=== PATIENT | female | born 1935 | race Hispanic/Latino ===

== ENCOUNTER 2017-04-22 10:18 | Inpatient (IN) | payer MEDICARE, OTHER ==
[~2017-04-22] VITALS: Ht 160 cm; Wt 79.9 kg
[2017-04-22] MEDS ORDERED: ONDANSETRON HCL 4 MG/2 ML VIAL ONE (10:54)
[2017-04-22] MEDS ORDERED: MORPHINE SULFATE 2 MG/ML 1ML SYG ONE (10:55)
[2017-04-22 10:58] LABS: BASOPHILS % (AUTO) 0.4 % (0.0-5.0); EOSINOPHILS % (AUTO) 0.3 % (0.0-8.0); LYMPHOCYTES % (AUTO) 10.8 % (21.0-51.0); MEAN CORPUSCULAR HEMOGLOBIN 28.6 pg (27.0-33.0); MEAN CORPUSCULAR HGB CONC 33.2 g/dL (32.0-36.0); MEAN CORPUSCULAR VOLUME 86.3 fL (79-99); MONOCYTES % (AUTO) 7.6 % (3.0-13.0); NEUTROPHILS % (AUTO) 80.9 % (40.0-77.0); PLATELET COUNT (AUTO) 324 K/uL (130-400); RED BLOOD CELL COUNT(AUTO) 4.29 MIL/uL (4.00-5.50); RED CELL DISTRIBUTION WIDTH 13.8 % (11.0-15.5); WHITE BLOOD COUNT (AUTO) 10.8 K/uL (4.8-10.8)
[2017-04-22 11:09] LABS: APPEARANCE,URINE Cloudy (CLEAR); BILIRUBIN,URINE Negative (NEGATIVE); COLOR,URINE Dark Yellow (YELLOW); GLUCOSE, URINE (UA) Negative (NEGATIVE); KETONES,URINE Negative (NEGATIVE); LEUKOCYTE ESTERASE ,URINE Small (NEGATIVE); NITRATE,URINE Negative (NEGATIVE); OCCULT BLOOD,URINE Negative (NEGATIVE); PROTEIN,URINE POS 1+ (NEGATIVE)
[2017-04-22 11:10] LABS: POTASSIUM 3.9 mmol/L (3.5-5.1)
[2017-04-22 11:13] LABS: ALBUMIN 3.8 g/dL (3.5-5.0); BILIRUBIN,TOTAL 1.1 mg/dL (0.2-1.0); TOTAL PROTEIN, SERUM 7.4 g/dL (6.0-8.3)
[2017-04-22 11:20] LABS: BACTERIA,URINE Moderate /HPF (None Seen)
[2017-04-22 11:21] LABS: RBC,URINE 0-1 /HPF (0-1)
[2017-04-22] MEDS ORDERED: SODIUM CHLORIDE 0.9% 1000ML 1,000 ML IV ONE (12:10)
[2017-04-22] MEDS ORDERED: LORAZEPAM 2 MG/ML 1 ML VIAL ONE (12:27)
[2017-04-22] MEDS ORDERED: LIDOCAINE HCL 2% VISCOUS 15 ML UDCUP ONE (12:29)
[2017-04-22] MEDS ORDERED: MORPHINE SULFATE 2 MG/ML 1ML SYG IV PRN (13:45)
[2017-04-22] MEDS ORDERED: GUAIFENESIN-DM 200/20 MG 10 ML PO PRN (13:45)
[2017-04-22] MEDS ORDERED: ACETAMINOPHEN 325 MG TAB PO PRN ×2 (13:45)
[2017-04-22] MEDS ORDERED: ONDANSETRON HCL 4 MG/2 ML VIAL IV PRN (13:45)
[2017-04-22] MEDS ORDERED: ZOSYN 3.375GM+NS 50ML 50 ML IV ONE (14:01)
[2017-04-22 15:30] VITALS: BP 149/76
[2017-04-22] MEDS ORDERED: ROSU10TA35 PO (15:41)
[2017-04-22] MEDS ORDERED: FLUO-126 PO (15:41)
[2017-04-22] MEDS ORDERED: VITA100051 PO (15:41)
[2017-04-22] MEDS ORDERED: AEC81 PO (15:41)
[2017-04-22] MEDS ORDERED: CHOL200074 PO (15:41)
[2017-04-22] MEDS ORDERED: LOSA50TA37 PO (15:41)
[2017-04-22] MEDS ORDERED: CYCL30DR OU (15:41)
[2017-04-22] MEDS ORDERED: CYAN50008 PO (15:41)
[2017-04-22] MEDS ORDERED: FISH1CAP63 PO (15:41)
[2017-04-22] MEDS ORDERED: MAGN400C PO (15:41)
[2017-04-22] MEDS ORDERED: CARB15DR3 OU (15:41)
[2017-04-22] MEDS ORDERED: DENO60DI SQ (15:41)
[2017-04-22] MEDS ORDERED: LEVO50TA11 PO (15:41)
[2017-04-22] MEDS ORDERED: CALC-1062 PO (15:41)
[2017-04-22] MEDS: SODIUM CHLORIDE 0.9% 1000ML 1,000 ML IV SCH ×2 (17:17→23:31)
[2017-04-22 20:58] VITALS: BP 150/69
[2017-04-22] MEDS ORDERED: POTASSIUM CHLORIDE 10% ELIXIR 20 MEQ/15 ML UDCUP PO PRN (21:30)
[2017-04-22] MEDS ORDERED: LIDOCAINE HCL-MPF 1% 2ML VIAL IVP PRN (21:30)
[2017-04-22] MEDS: ZOSYN 3.375GM+NS 50ML 50 ML IV SCH (22:59)
[2017-04-23 00:16] VITALS: BP 139/60
[2017-04-23] MEDS: SODIUM CHLORIDE 0.9% 1000ML 1,000 ML IV SCH ×2 (04:07→14:19)
[2017-04-23 04:48] VITALS: BP 136/71
[2017-04-23] MEDS: ZOSYN 3.375GM+NS 50ML 50 ML IV SCH ×3 (05:08→21:39)
[2017-04-23 06:55] LABS: HEMATOCRIT 29.7 % (36-48); MEAN CORPUSCULAR HEMOGLOBIN 29.4 pg (27.0-33.0); MEAN CORPUSCULAR HGB CONC 33.5 g/dL (32.0-36.0); MEAN CORPUSCULAR VOLUME 87.8 fL (79-99); PLATELET COUNT (AUTO) 252 K/uL (130-400); RED BLOOD CELL COUNT(AUTO) 3.38 MIL/uL (4.00-5.50); RED CELL DISTRIBUTION WIDTH 14.4 % (11.0-15.5); WHITE BLOOD COUNT (AUTO) 6.5 K/uL (4.8-10.8)
[2017-04-23 07:00] VITALS: BP 148/63
[2017-04-23 07:19] LABS: CREATININE 0.8 mg/dL (0.5-1.5); POTASSIUM 3.4 mmol/L (3.5-5.1)
[2017-04-23] MEDS ORDERED: PANTOPRAZOLE 40 MG/VIAL IVP SCH (09:00)
[2017-04-23] MEDS ORDERED: FAMOTIDINE/PF 20 MG/2 ML VIAL IV ONE (10:17)
[2017-04-23] MEDS: POTASSIUM CHLORIDE 20MEQ/100ML 100 ML IV PRN (10:32)
[2017-04-23] MEDS ORDERED: ARTIFICAL TEARS SOL 15 ML OU PRN (10:45)
[2017-04-23 11:00] VITALS: BP 159/62
[2017-04-23 15:39] VITALS: BP 160/69
[2017-04-23 20:35] VITALS: BP 154/71
[2017-04-23] MEDS ORDERED: CYCLOSPORINE OU SCH (21:00)
[2017-04-23] MEDS: ***HM***(Cyclosporine (Restasis) 1 DROP) OU SCH (21:00)
[2017-04-23] MEDS: VITAMIN E 400 UNIT CAPSULE PO SCH (21:39)
[2017-04-23] MEDS: ATORVASTATIN CALCIUM 20 MG TABLET PO SCH (21:39)
[2017-04-23] MEDS: FAMOTIDINE/PF 20 MG/2 ML VIAL IV SCH (21:39)
[2017-04-23] MEDS: FISH OIL 1000 MG/CAP PO SCH (21:39)
[2017-04-24] VITALS (7 sets, daily range): BP systolic 140–162; BP diastolic 64–73
[2017-04-24] MEDS: SODIUM CHLORIDE 0.9% 1000ML 1,000 ML IV SCH ×2 (05:05→15:48)
[2017-04-24] MEDS: ZOSYN 3.375GM+NS 50ML 50 ML IV SCH ×3 (05:06→20:41)
[2017-04-24 06:12] LABS: HEMATOCRIT 28.5 % (36-48); MEAN CORPUSCULAR HEMOGLOBIN 28.8 pg (27.0-33.0); MEAN CORPUSCULAR HGB CONC 33.1 g/dL (32.0-36.0); MEAN CORPUSCULAR VOLUME 87.1 fL (79-99); PLATELET COUNT (AUTO) 230 K/uL (130-400); RED BLOOD CELL COUNT(AUTO) 3.27 MIL/uL (4.00-5.50); RED CELL DISTRIBUTION WIDTH 14.1 % (11.0-15.5); WHITE BLOOD COUNT (AUTO) 6.1 K/uL (4.8-10.8)
[2017-04-24 06:20] LABS: CREATININE 0.7 mg/dL (0.5-1.5)
[2017-04-24] MEDS: LEVOTHYROXINE 50 MCG TABLET PO SCH (07:05)
[2017-04-24] MEDS: POTASSIUM CHLORIDE 20MEQ/100ML 100 ML IV PRN (07:06)
[2017-04-24] MEDS: POTASSIUM CHLORIDE 20 MEQ ERTAB PO PRN ×4 (07:06→20:49)
[2017-04-24] MEDS: FISH OIL 1000 MG/CAP PO SCH ×2 (08:55→20:41)
[2017-04-24] MEDS: FLUOXETINE HCL 20 MG CAPSULE PO SCH (08:55)
[2017-04-24] MEDS: CALCIUM 600 + VITAMIN D 400 TABLET PO SCH (08:55)
[2017-04-24] MEDS: MAGNESIUM OXIDE 400 MG TABLET PO SCH (08:55)
[2017-04-24] MEDS: FAMOTIDINE/PF 20 MG/2 ML VIAL IV SCH ×2 (08:55→20:36)
[2017-04-24] MEDS: LOSARTAN 50 MG TABLET PO SCH (08:55)
[2017-04-24] MEDS: VITAMIN E 400 UNIT CAPSULE PO SCH ×2 (08:59→20:46)
[2017-04-24] MEDS: CYANOCOBALAMIN 5000 MCG PO SCH (09:00)
[2017-04-24] MEDS: CHOLECALCIFEROL 2000 UNIT PO SCH (09:00)
[2017-04-24] MEDS: ***HM***(Cyclosporine (Restasis) 1 DROP) OU SCH ×2 (09:00→20:44)
[2017-04-24] MEDS: ATORVASTATIN CALCIUM 20 MG TABLET PO SCH (20:41)
[2017-04-25] MEDS: SODIUM CHLORIDE 0.9% 1000ML 1,000 ML IV SCH ×3 (01:35→21:31)
[2017-04-25 03:52] VITALS: BP 168/80
[2017-04-25] MEDS: ZOSYN 3.375GM+NS 50ML 50 ML IV SCH ×3 (04:33→20:40)
[2017-04-25] MEDS: LEVOTHYROXINE 50 MCG TABLET PO SCH (06:26)
[2017-04-25 06:29] LABS: CREATININE 0.7 mg/dL (0.5-1.5); POTASSIUM 3.9 mmol/L (3.5-5.1)
[2017-04-25 08:00] VITALS: BP 152/61
[2017-04-25] MEDS: CYANOCOBALAMIN 5000 MCG PO SCH (09:00)
[2017-04-25] MEDS: ***HM***(Cyclosporine (Restasis) 1 DROP) OU SCH ×2 (09:00→20:46)
[2017-04-25] MEDS: VITAMIN E 400 UNIT CAPSULE PO SCH ×2 (09:00→20:40)
[2017-04-25] MEDS: CHOLECALCIFEROL 2000 UNIT PO SCH (09:00)
[2017-04-25 09:32] LABS: HEMATOCRIT 32.2 % (36-48)
[2017-04-25] MEDS: CALCIUM 600 + VITAMIN D 400 TABLET PO SCH (10:07)
[2017-04-25] MEDS: FISH OIL 1000 MG/CAP PO SCH ×2 (10:07→20:41)
[2017-04-25] MEDS: FLUOXETINE HCL 20 MG CAPSULE PO SCH (10:07)
[2017-04-25] MEDS: LOSARTAN 50 MG TABLET PO SCH (10:07)
[2017-04-25] MEDS: MAGNESIUM OXIDE 400 MG TABLET PO SCH (10:08)
[2017-04-25] MEDS ORDERED: DENOSUMAB 60 MG SQ SCH (10:45)
[2017-04-25 11:00] VITALS: BP 168/62
[2017-04-25] MEDS: FAMOTIDINE/PF 20 MG/2 ML VIAL IV SCH ×2 (12:26→20:41)
[2017-04-25 16:00] VITALS: BP 165/66
[2017-04-25 20:08] VITALS: BP 168/74
[2017-04-25] MEDS: ATORVASTATIN CALCIUM 20 MG TABLET PO SCH (20:40)
[2017-04-25 23:57] VITALS: BP 169/71
[2017-04-26 03:47] VITALS: BP 163/77
[2017-04-26] MEDS: SODIUM CHLORIDE 0.9% 1000ML 1,000 ML IV SCH (04:15)
[2017-04-26] MEDS: ZOSYN 3.375GM+NS 50ML 50 ML IV SCH ×2 (04:15→13:00)
[2017-04-26] MEDS: LEVOTHYROXINE 50 MCG TABLET PO SCH (06:22)
[2017-04-26 07:00] VITALS: BP 156/77
[2017-04-26] MEDS: VITAMIN E 400 UNIT CAPSULE PO SCH (09:00)
[2017-04-26] MEDS: CYANOCOBALAMIN 5000 MCG PO SCH (09:00)
[2017-04-26] MEDS: ***HM***(Cyclosporine (Restasis) 1 DROP) OU SCH (09:00)
[2017-04-26] MEDS: CHOLECALCIFEROL 2000 UNIT PO SCH (09:00)
[2017-04-26] MEDS: FLUOXETINE HCL 20 MG CAPSULE PO SCH (10:43)
[2017-04-26] MEDS: MAGNESIUM OXIDE 400 MG TABLET PO SCH (10:44)
[2017-04-26] MEDS: LOSARTAN 50 MG TABLET PO SCH (10:44)
[2017-04-26] MEDS: FAMOTIDINE/PF 20 MG/2 ML VIAL IV SCH (10:44)
[2017-04-26] MEDS: CALCIUM 600 + VITAMIN D 400 TABLET PO SCH (10:44)
[2017-04-26] MEDS: FISH OIL 1000 MG/CAP PO SCH (10:44)
[2017-04-26 11:00] VITALS: BP 170/86
== END 2017-04-26 13:00 | disposition home or self-care (01) | DRG 389 ==
LOC: EDH 10:18 → OBSVTOIN 13:31 → 3BH 13:31
PROVIDERS: ADMIT Family Medicine; ATTEND Family Medicine
PROC: 0D9670Z Drainage of Stomach with Drainage Device, Via Natural or Artificial Opening (ICD-10-PCS; principal; 2017-04-23)
DX: K56.609 Unspecified intestinal obstruction, unspecified as to partial versus complete obstruction (principal); N39.0 Urinary tract infection, site not specified; E11.9 Type 2 diabetes mellitus without complications; E03.9 Hypothyroidism, unspecified; E78.5 Hyperlipidemia, unspecified; I10 Essential (primary) hypertension; I25.10 Atherosclerotic heart disease of native coronary artery without angina pectoris; K21.9 Gastro-esophageal reflux disease without esophagitis; M81.0 Age-related osteoporosis without current pathological fracture; Z96.611 Presence of right artificial shoulder joint; Z96.653 Presence of artificial knee joint, bilateral; M19.90 Unspecified osteoarthritis, unspecified site; Z88.6 Allergy status to analgesic agent; Z91.041 Radiographic dye allergy status; Z91.09 Other allergy status, other than to drugs and biological substances; Z90.49 Acquired absence of other specified parts of digestive tract; Z90.710 Acquired absence of both cervix and uterus; Z28.21 Immunization not carried out because of patient refusal
CPT/HCPCS: 36415; 71045; 74018; 74176; 80048; 80053; 81001; 83690; 84484; 85025; 85027; 87324; 93005; C9113; J2060; J2405; J2543; J3480; J3490; J7030

== ENCOUNTER 2017-09-17 14:31 | Emergency (ER) | payer OTHER ==
[~2017-09-17 14:31] MED LIST: AEC81 PO; CALC-1062 PO; CARB15DR3 OU; CHOL200074 PO; CYAN50008 PO; CYCL30DR OU; DENO60DI SQ; FISH1CAP63 PO; FLUO-126 PO; LEVO50TA11 PO; LOSA50TA37 PO; MAGN400C PO; ROSU10TA27 PO; VITA100051 PO
[2017-09-17] MEDS ORDERED: DEXAMETHASONE SOD PHOSPHATE 4 MG/ML 1ML VIAL ONE (15:29)
[2017-09-17] MEDS ORDERED: LIDOCAINE 5% TOPICAL PATCH TP ONE (15:30)
[2017-09-17] MEDS ORDERED: ORPHENADRINE CITRATE 30 MG/ML ML ONE (15:30)
== END 2017-09-17 17:00 | disposition home or self-care (01) ==
LOC: EDH 14:31
DX: M46.1 Sacroiliitis, not elsewhere classified (principal); E78.5 Hyperlipidemia, unspecified; I10 Essential (primary) hypertension; M81.0 Age-related osteoporosis without current pathological fracture; K21.9 Gastro-esophageal reflux disease without esophagitis; Z88.1 Allergy status to other antibiotic agents; Z88.6 Allergy status to analgesic agent
CPT/HCPCS: 73502; 96372 ×2; 99284; J1100; J2360

== ENCOUNTER 2017-12-22 09:00 | Inpatient (IN) | payer OTHER ==
[~2017-12-22] VITALS: Ht 157.5 cm; Wt 79.9 kg
[~2017-12-22 09:00] MED LIST changes: -AEC81 PO; -CYAN50008 PO; -DENO60DI SQ; -FISH1CAP63 PO; -LEVO50TA11 PO; -LOSA50TA37 PO; -ROSU10TA27 PO; -VITA100051 PO
[2017-12-22 12:30] VITALS: BP 146/62
[2017-12-22 12:50] LABS: BASOPHILS % (AUTO) 0.9 % (0.0-5.0); EOSINOPHILS % (AUTO) 1.8 % (0.0-8.0); HEMATOCRIT 35.8 % (36-48); LYMPHOCYTES % (AUTO) 27.2 % (21.0-51.0); MEAN CORPUSCULAR HEMOGLOBIN 28.4 pg (27.0-33.0); MEAN CORPUSCULAR HGB CONC 32.7 g/dL (32.0-36.0); MEAN CORPUSCULAR VOLUME 86.9 fL (79-99); MONOCYTES % (AUTO) 12.1 % (3.0-13.0); NUCLEATED RED BLOOD CELLS 0.1 % (0.0-0.19); PLATELET COUNT (AUTO) 268 K/uL (130-400); RED BLOOD CELL COUNT(AUTO) 4.12 MIL/uL (4.00-5.50); RED CELL DISTRIBUTION WIDTH 13.9 % (11.0-15.5); WHITE BLOOD COUNT (AUTO) 6.1 K/uL (4.8-10.8)
[2017-12-22 12:59] LABS: CREATININE 0.8 mg/dL (0.5-1.5); POTASSIUM 3.9 mmol/L (3.5-5.1)
[2017-12-22] MEDS ORDERED: TRAM-355 PO (14:59)
[2017-12-22] MEDS ORDERED: vitamin b12 PO (14:59)
[2017-12-22] MEDS ORDERED: ECOTRIN PO (14:59)
[2017-12-22] MEDS ORDERED: ACET1TAB25 PO (14:59)
[2017-12-22] MEDS ORDERED: VITA100012 PO (14:59)
[2017-12-22] MEDS ORDERED: prolia INJ (14:59)
[2017-12-22] MEDS ORDERED: VITAMIN B-6 PO (14:59)
[2017-12-22] MEDS ORDERED: ROSU10TA PO (14:59)
[2017-12-22] MEDS ORDERED: LOSA100T20 PO (15:03)
[2017-12-22] MEDS ORDERED: LEVO50TA11 PO (15:06)
[2017-12-22] MEDS ORDERED: FISH1CAP63 PO (15:07)
[2017-12-22] MEDS ORDERED: CEFAZOLIN SODIUM 1 GM VIAL IVP SCH (15:15)
[2017-12-28] VITALS (19 sets, daily range): BP systolic 129–170; BP diastolic 52–78
[2017-12-28] MEDS ORDERED: CEFAZOLIN SODIUM 1 GM VIAL ONE (09:31)
[2017-12-28] MEDS ORDERED: LACTATED RINGERS 1000ML 1,000 ML IV ONE (09:31)
[2017-12-28] MEDS ORDERED: DEXAMETHASONE SOD PHOSPHATE 10MG/ML 1ML VIAL ONE (11:09)
[2017-12-28] MEDS ORDERED: LIDOCAINE PF 2% 5ML ABBOJECT ONE (11:09)
[2017-12-28] MEDS ORDERED: ONDANSETRON HCL 4 MG/2 ML VIAL ONE (11:09)
[2017-12-28] MEDS ORDERED: ROCURONIUM 10MG/1ML SYR 10 MG/ML ML ONE (11:09)
[2017-12-28] MEDS ORDERED: MIDAZOLAM HCL 1 MG/ML 2ML VIAL ONE (11:09)
[2017-12-28] MEDS ORDERED: PROPOFOL 10 MG/ML 20ML VIAL IV ONE (11:09)
[2017-12-28] MEDS ORDERED: NEOSTIGMINE 5MG/5ML SYR IV ONE ×2 (11:09→13:22)
[2017-12-28] MEDS ORDERED: EPHEDRINE SULFATE 50 MG/ML AMPULE ONE (12:20)
[2017-12-28] MEDS ORDERED: TRANEXAMIC ACID 1000MG/10ML IV ONE (13:06)
[2017-12-28] MEDS ORDERED: GLYCOPYRROLATE 1 MG/5 ML SYRINGE ONE (13:22)
[2017-12-28] MEDS ORDERED: POTASSIUM CHLORIDE 20MEQ/100ML 100 ML IV PRN (13:30)
[2017-12-28] MEDS ORDERED: POTASSIUM CHLORIDE 20 MEQ ERTAB PO PRN (13:30)
[2017-12-28] MEDS: ACETAMINOPHEN EXTRA STRENGTH 500 MG TABLET PO SCH ×2 (13:30→21:33)
[2017-12-28] MEDS ORDERED: LIDOCAINE HCL-MPF 1% 2ML VIAL IVP PRN (13:30)
[2017-12-28] MEDS ORDERED: ONDANSETRON HCL 4 MG/2 ML VIAL IVP PRN (13:30)
[2017-12-28] MEDS ORDERED: POTASSIUM CHLORIDE 10% ELIXIR 20 MEQ/15 ML UDCUP PO PRN (13:30)
[2017-12-28] MEDS: TRAMADOL HCL 50 MG TABLET PO PRN (15:42)
[2017-12-28] MEDS: SODIUM CHLORIDE 0.9% 1000ML 1,000 ML IV SCH ×2 (16:24→22:49)
[2017-12-28] MEDS ORDERED: CARBOXYMETHYLCELLULOSE SODIUM OU PRN (16:30)
[2017-12-28] MEDS: CEFAZOLIN SODIUM 1 GM VIAL IVP SCH (19:27)
[2017-12-28] MEDS: Cyclosporine (Restasis) 1 DROP OU SCH (21:00)
[2017-12-29] VITALS (7 sets, daily range): BP systolic 126–144; BP diastolic 49–68
[2017-12-29] MEDS: CEFAZOLIN SODIUM 1 GM VIAL IVP SCH (02:15)
[2017-12-29] MEDS: OXYCODONE HCL 5 MG TAB PO PRN ×3 (02:23→17:37)
[2017-12-29 04:25] LABS: HEMATOCRIT 28.7 % (36-48); MEAN CORPUSCULAR HEMOGLOBIN 28.5 pg (27.0-33.0); MEAN CORPUSCULAR HGB CONC 33.1 g/dL (32.0-36.0); MEAN CORPUSCULAR VOLUME 86.4 fL (79-99); PLATELET COUNT (AUTO) 207 K/uL (130-400); RED BLOOD CELL COUNT(AUTO) 3.33 MIL/uL (4.00-5.50); RED CELL DISTRIBUTION WIDTH 13.9 % (11.0-15.5); WHITE BLOOD COUNT (AUTO) 9.2 K/uL (4.8-10.8)
[2017-12-29 04:41] LABS: CREATININE 0.8 mg/dL (0.5-1.5); POTASSIUM 3.7 mmol/L (3.5-5.1)
[2017-12-29] MEDS ORDERED: LEVOTHYROXINE 50 MCG TABLET ONE (04:56)
[2017-12-29] MEDS: LEVOTHYROXINE 50 MCG TABLET PO SCH (04:58)
[2017-12-29] MEDS: ACETAMINOPHEN EXTRA STRENGTH 500 MG TABLET PO SCH ×3 (04:58→20:02)
[2017-12-29] MEDS: FLUOXETINE HCL 20 MG CAPSULE PO SCH (08:49)
[2017-12-29] MEDS: LOSARTAN 100 MG TABLET PO SCH (08:50)
[2017-12-29] MEDS: POLYETHYLENE GLYCOL 3350 17 GM POWD.PACK PO SCH (08:51)
[2017-12-29] MEDS: Cyclosporine (Restasis) 1 DROP OU SCH ×2 (08:51→19:42)
[2017-12-29] MEDS: SODIUM CHLORIDE 0.9% 1000ML 1,000 ML IV SCH (09:23)
[2017-12-29] MEDS: TRAMADOL HCL 50 MG TABLET PO PRN (11:34)
[2017-12-29] MEDS: GUAIFENESIN-DM 200/20 MG 10 ML PO PRN ×3 (12:39→22:56)
[2017-12-29] MEDS ORDERED: PNEUMOCOCCAL VACCINE POLYVALENT 0.5 ML/VIAL [PPV] ONE (14:52)
[2017-12-30] MEDS: ACETAMINOPHEN EXTRA STRENGTH 500 MG TABLET PO SCH (04:11)
[2017-12-30] MEDS: LEVOTHYROXINE 50 MCG TABLET PO SCH (04:11)
[2017-12-30 04:20] VITALS: BP 136/64
[2017-12-30] MEDS: GUAIFENESIN-DM 200/20 MG 10 ML PO PRN (05:59)
[2017-12-30 07:39] VITALS: BP 124/52
[2017-12-30] MEDS: FLUOXETINE HCL 20 MG CAPSULE PO SCH (08:51)
[2017-12-30] MEDS: POLYETHYLENE GLYCOL 3350 17 GM POWD.PACK PO SCH (08:51)
[2017-12-30] MEDS: LOSARTAN 100 MG TABLET PO SCH (08:51)
[2017-12-30] MEDS: Cyclosporine (Restasis) 1 DROP OU SCH (09:00)
[2017-12-30] MEDS: OXYCODONE HCL 5 MG TAB PO PRN (10:24)
[2017-12-30] MEDS ORDERED: TYL3 PO (11:11)
[2017-12-30 11:40] VITALS: BP 125/52
[2017-12-31] MEDS ORDERED: BISACODYL 10 MG SUPP.RECT RC PRN (13:30)
== END 2017-12-30 14:25 | disposition home health service (06) | DRG 483 ==
LOC: EDSTATUS 12-27 13:30 → DAHIP 12-28 07:56 → 4AH 12-28 13:58
PROVIDERS: ADMIT Orthopaedic Surgery; ATTEND Orthopaedic Surgery
PROC: 0RRK00Z Replacement of Left Shoulder Joint with Reverse Ball and Socket Synthetic Substitute, Open Approach (ICD-10-PCS; principal; 2017-12-28 11:08)
PROC: 3E0234Z Introduction of Serum, Toxoid and Vaccine into Muscle, Percutaneous Approach (ICD-10-PCS; 2017-12-29)
DX: M75.122 Complete rotator cuff tear or rupture of left shoulder, not specified as traumatic (principal); I10 Essential (primary) hypertension; M19.012 Primary osteoarthritis, left shoulder; Z88.6 Allergy status to analgesic agent; Z91.041 Radiographic dye allergy status; Z88.1 Allergy status to other antibiotic agents; Z23 Encounter for immunization
CPT/HCPCS: 36415; 73020; 73030; 80048; 85025; 85027; 88304; 88311; 90732; A4218; J0690; J1100; J2001; J2250; J2405; J2704; J2710; J3490; J7030; J7120; Q2038

== ENCOUNTER → 2018-06-12 | Outpatient (CLI) | payer OTHER ==
[~2018-06-12] MED LIST changes: -CALC-1062 PO; -CHOL200074 PO; +LEVO50TA11 PO; +LOSA100T58 PO; +ROSU10TA PO; +TYL3 PO
== END | disposition home or self-care (01) ==
LOC: RAH 14:23
PROVIDERS: ATTEND Orthopaedic Surgery
DX: M47.812 Spondylosis without myelopathy or radiculopathy, cervical region (principal); J84.10 Pulmonary fibrosis, unspecified
CPT/HCPCS: 72125

== ENCOUNTER 2019-07-26 10:34 | Inpatient (IN) | payer OTHER ==
[~2019-07-26] VITALS: Ht 157.5 cm; Wt 78.5 kg
[~2019-07-26 10:34] MED LIST changes: -FLUO-126 PO; +FLUO20CA35 PO; -ROSU10TA PO; +ROSU10TA22 PO
[2019-07-26] MEDS ORDERED: ZOLPIDEM TARTRATE 5 MG TAB PO PRN (11:00)
[2019-07-26] MEDS ORDERED: ACETAMINOPHEN 325 MG TAB PO PRN (11:00)
[2019-07-26] MEDS ORDERED: SODIUM CHLORIDE 0.9% 10 ML VIAL IVP SCH (11:00)
[2019-07-26] MEDS ORDERED: ONDANSETRON HCL 4 MG/2 ML VIAL IVP PRN (11:00)
[2019-07-26] MEDS ORDERED: DIPHENHYDRAMINE HCL 25 MG CAPSULE PO PRN (11:00)
[2019-07-26 11:24] LABS: BASOPHILS % (AUTO) 0.9 % (0.0-5.0); EOSINOPHILS % (AUTO) 3.2 % (0.0-8.0); HEMATOCRIT 33.8 % (36-48); LYMPHOCYTES % (AUTO) 18.6 % (21.0-51.0); MEAN CORPUSCULAR HEMOGLOBIN 28.2 pg (27.0-33.0); MEAN CORPUSCULAR HGB CONC 32.5 g/dL (32.0-36.0); MEAN CORPUSCULAR VOLUME 86.7 fL (79-99); MONOCYTES % (AUTO) 11.1 % (3.0-13.0); NEUTROPHILS % (AUTO) 65.9 % (40.0-77.0); PLATELET COUNT (AUTO) 361 K/uL (130-400); RED CELL DISTRIBUTION WIDTH 13.8 % (11.0-15.5); WHITE BLOOD COUNT (AUTO) 7.5 K/uL (4.8-10.8)
[2019-07-26 11:34] LABS: CREATININE 0.9 mg/dL (0.5-1.5); POTASSIUM 4.6 mmol/L (3.5-5.1)
[2019-07-26 11:38] LABS: ALBUMIN 3.6 g/dL (3.5-5.0); BILIRUBIN,DIRECT 0.2 mg/dL (0.0-0.3); BILIRUBIN,TOTAL 0.8 mg/dL (0.2-1.0); TOTAL PROTEIN, SERUM 7.6 g/dL (6.0-8.3)
[2019-07-26 11:40] VITALS: BP 144/84
--- NOTE | 2019-07-26 11:40 | NUR ---
REPORT RECEIVED FROM CR MUÑIZ (ED). PATIENT WILL BE A DIRECT ADMIT FOR DR. HOGUE FOR LLE CELLULITIS AND LEFT DVT. NO CONSULTS. 22G TO LEFT HAND STARTED. PATIENT TO START ANTIBIOTICS ORDERED. PATIENT STABLE AT THIS TIME.
[2019-07-26] MEDS: ZYVOX 600 MG TAB PO SCH ×2 (12:37→20:50)
[2019-07-26] MEDS: CEFAZOLIN SODIUM 1 GM VIAL IVP SCH ×2 (12:37→20:50)
[2019-07-26 16:00] VITALS: BP 135/55
[2019-07-26] MEDS ORDERED: GLIPIZIDE 5 MG TABLET PO SCH (17:00)
[2019-07-26] MEDS ORDERED: OLME20TA22 PO (17:11)
[2019-07-26] MEDS ORDERED: OMEG100014 PO (17:11)
[2019-07-26] MEDS ORDERED: ASPI-555 PO (17:11)
[2019-07-26] MEDS ORDERED: CHOL2400 MC (17:11)
[2019-07-26] MEDS ORDERED: APIX5TAB PO (17:11)
[2019-07-26] MEDS ORDERED: CYAN500T63 PO (17:11)
[2019-07-26] MEDS ORDERED: FLUO20CA35 PO (17:11)
[2019-07-26 19:51] VITALS: BP 130/63
[2019-07-26] MEDS: APIXABAN 5 MG TABLET PO SCH (20:50)
[2019-07-26] MEDS: ATORVASTATIN CALCIUM 20 MG TABLET PO SCH (20:50)
[2019-07-26 23:55] VITALS: BP 123/51
[2019-07-27 04:00] VITALS: BP 115/49
[2019-07-27] MEDS: CEFAZOLIN SODIUM 1 GM VIAL IVP SCH ×3 (04:44→19:00)
[2019-07-27 05:19] LABS: EOSINOPHILS % (AUTO) 5.8 % (0.0-8.0); HEMATOCRIT 29.5 % (36-48); LYMPHOCYTES % (AUTO) 26.7 % (21.0-51.0); MEAN CORPUSCULAR HEMOGLOBIN 28.1 pg (27.0-33.0); MEAN CORPUSCULAR HGB CONC 32.2 g/dL (32.0-36.0); MEAN CORPUSCULAR VOLUME 87.3 fL (79-99); MONOCYTES % (AUTO) 10.7 % (3.0-13.0); NEUTROPHILS % (AUTO) 55.6 % (40.0-77.0); PLATELET COUNT (AUTO) 337 K/uL (130-400); RED BLOOD CELL COUNT(AUTO) 3.38 MIL/uL (4.00-5.50); RED CELL DISTRIBUTION WIDTH 13.8 % (11.0-15.5); WHITE BLOOD COUNT (AUTO) 6.2 K/uL (4.8-10.8)
[2019-07-27 05:41] LABS: CREATININE 0.8 mg/dL (0.5-1.5)
[2019-07-27] MEDS: LEVOTHYROXINE 50 MCG TABLET PO SCH (06:10)
[2019-07-27 08:00] VITALS: BP 137/65
[2019-07-27] MEDS: APIXABAN 5 MG TABLET PO SCH ×2 (10:22→20:59)
[2019-07-27] MEDS: AMLODIPINE BESYLATE 5 MG TAB PO SCH (10:22)
[2019-07-27] MEDS: ZYVOX 600 MG TAB PO SCH ×2 (10:22→20:59)
[2019-07-27] MEDS: LOSARTAN 100 MG TABLET PO SCH (10:22)
[2019-07-27 11:40] VITALS: BP 134/59
[2019-07-27 16:00] VITALS: BP 150/68
--- NOTE | 2019-07-27 19:18 | NUR ---
cm note met with patient and states resides athome with spouse, but he is currently hospitalized at this hospital. pt uses cane at times for ambulation, pt drives and does own personal care. daughter carlos is staying with her athome to help care for spouse. dc plan is back home states no dc needs Addendum: 07/27/19 at 1920 by BRADY GARAY CM Amended: Links added.
[2019-07-27 20:20] VITALS: BP 143/55
[2019-07-27] MEDS: ATORVASTATIN CALCIUM 20 MG TABLET PO SCH (20:59)
[2019-07-28] VITALS (7 sets, daily range): BP systolic 116–147; BP diastolic 50–72
[2019-07-28] MEDS: CEFAZOLIN SODIUM 1 GM VIAL IVP SCH ×3 (03:53→19:03)
[2019-07-28 05:09] LABS: HEMATOCRIT 29.8 % (36-48); MEAN CORPUSCULAR HEMOGLOBIN 28.1 pg (27.0-33.0); MEAN CORPUSCULAR HGB CONC 32.2 g/dL (32.0-36.0); MEAN CORPUSCULAR VOLUME 87.1 fL (79-99); PLATELET COUNT (AUTO) 327 K/uL (130-400); RED BLOOD CELL COUNT(AUTO) 3.42 MIL/uL (4.00-5.50); RED CELL DISTRIBUTION WIDTH 13.9 % (11.0-15.5); WHITE BLOOD COUNT (AUTO) 6.7 K/uL (4.8-10.8)
[2019-07-28 05:30] LABS: BILIRUBIN,TOTAL 0.5 mg/dL (0.2-1.0); CREATININE 0.9 mg/dL (0.5-1.5); POTASSIUM 4.1 mmol/L (3.5-5.1); TOTAL PROTEIN, SERUM 6.3 g/dL (6.0-8.3)
[2019-07-28] MEDS: LEVOTHYROXINE 50 MCG TABLET PO SCH (06:34)
[2019-07-28] MEDS: AMLODIPINE BESYLATE 5 MG TAB PO SCH (09:34)
[2019-07-28] MEDS: LOSARTAN 100 MG TABLET PO SCH (09:34)
[2019-07-28] MEDS: ZYVOX 600 MG TAB PO SCH ×2 (09:34→21:15)
[2019-07-28] MEDS: APIXABAN 5 MG TABLET PO SCH ×2 (09:34→21:16)
[2019-07-28] MEDS ORDERED: CARBOXYMETHYLCELLULOSE SODIUM OU PRN (11:15)
[2019-07-28] MEDS ORDERED: GABAPENTIN 100 MG CAPSULE PO SCH (12:00)
[2019-07-28] MEDS: GABAPENTIN 100 MG CAPSULE PO SCH ×2 (13:33→21:00)
[2019-07-28] MEDS: ATORVASTATIN CALCIUM 20 MG TABLET PO SCH (21:15)
[2019-07-29 03:53] VITALS: BP 123/55
[2019-07-29] MEDS: CEFAZOLIN SODIUM 1 GM VIAL IVP SCH ×2 (04:44→11:56)
[2019-07-29] MEDS: LEVOTHYROXINE 50 MCG TABLET PO SCH (06:11)
[2019-07-29 08:00] VITALS: BP 132/67
[2019-07-29] MEDS ORDERED: (Cyclosporine (Restasis) 1 DROP) OU SCH (09:00)
[2019-07-29] MEDS ORDERED: FISH OIL 1000 MG/CAP PO SCH (09:00)
[2019-07-29] MEDS ORDERED: FLUOXETINE HCL 20 MG CAPSULE PO SCH (09:00)
[2019-07-29] MEDS ORDERED: CYANOCOBALAMIN (VITAMIN B-12) 1,000 MCG TABLET PO SCH (09:00)
[2019-07-29] MEDS ORDERED: Olmesartan Medoxomil 20 MG PO SCH (09:00)
[2019-07-29] MEDS ORDERED: Cholecalciferol (Vitamin D3) (Vitamin D3) 2,000 UNIT PO SCH (09:00)
[2019-07-29] MEDS: GABAPENTIN 100 MG CAPSULE PO SCH (09:00)
[2019-07-29] MEDS: APIXABAN 5 MG TABLET PO SCH (09:21)
[2019-07-29] MEDS: LOSARTAN 100 MG TABLET PO SCH (09:21)
[2019-07-29] MEDS: AMLODIPINE BESYLATE 5 MG TAB PO SCH (09:21)
[2019-07-29] MEDS: ZYVOX 600 MG TAB PO SCH (09:21)
[2019-07-29 10:40] VITALS: BP 128/60
--- NOTE | 2019-07-29 12:00 | NUR ---
DISCHARGE INSTRUCTIONS PROVIDED TO PATIENT. HANDOUTS PROVIDED ON DIAGNOSIS, NEW MEDICATION, FALL PREVENTION. PRESCRIPTION PROVIDED AND FOLLOW UP APPOINTMENT PROVIDED WELL. PATIENT VERBALIZED UNDERSTANDING, ALL QUESTIONS/CONCERNS ADDRESSED.
--- NOTE | 2019-07-29 12:45 | NUR ---
PATIENT VISITING HER IN ROOM 332 BEFORE SHE LEAVES THE HOSPITAL Addendum: 07/29/19 at 1315 by DANI WILLOUGHBY RN RN Amended: Links added.
--- NOTE | 2019-07-29 13:00 | NUR ---
PATIENT DISCHARGED FROM FACILITY VIA WHEELCHAIR ASSISTED IN TO PRIVATE VEHICLE DRIVEN BY DAUGHTER.
== END 2019-07-29 13:11 | disposition home or self-care (01) | DRG 300 ==
LOC: EDH 10:34 → OBSVTOIN 11:08 → EDHIP 11:08 → 3BH 11:10
PROVIDERS: ADMIT Internal Medicine; ATTEND Internal Medicine
DX: I82.402 Acute embolism and thrombosis of unspecified deep veins of left lower extremity (principal); L03.116 Cellulitis of left lower limb; I10 Essential (primary) hypertension; F32.9 Major depressive disorder, single episode, unspecified; E78.5 Hyperlipidemia, unspecified; E03.9 Hypothyroidism, unspecified; K21.9 Gastro-esophageal reflux disease without esophagitis; D64.9 Anemia, unspecified; Z88.6 Allergy status to analgesic agent; Z88.1 Allergy status to other antibiotic agents; Z91.041 Radiographic dye allergy status
CPT/HCPCS: 36415; 80048; 80053; 80076; 85025; 85027; 93971; G0378; J0690

== ENCOUNTER → 2020-02-03 | Outpatient (CLI) | payer OTHER, MEDICARE ==
[~2020-02-03] MED LIST changes: +APIX5TAB PO; +ASPI-556 PO; +CHOL2400 MC; +CYAN500T63 PO; -LOSA100T58 PO; -MAGN400C PO; +OLME20TA22 PO; +OMEG100014 PO; +REGADENOSON 0.4 MG/5 ML PF SYG IVP SCH; -TYL3 PO
== END | disposition home or self-care (01) ==
LOC: RAH 08:36
PROVIDERS: ATTEND Internal Medicine
DX: I35.0 Nonrheumatic aortic (valve) stenosis (principal); R06.02 Shortness of breath; R07.9 Chest pain, unspecified; R05 Cough
CPT/HCPCS: 78452; 93017; 96374; A9500 ×2; J2785

== ENCOUNTER 2021-09-03 12:42 | Emergency (ER) | payer MEDICARE ==
[~2021-09-03] VITALS: Ht 152.4 cm; Wt 60.8 kg
[~2021-09-03 12:42] MED LIST changes: -CYAN500T63 PO; +CYAN500T9 PO; -FLUO20CA35 PO; +FLUO20CA36 PO; -REGADENOSON 0.4 MG/5 ML PF SYG IVP SCH
[2021-09-03 13:06] LABS: BASOPHILS % (AUTO) 0.4 % (0.0-5.0); HEMATOCRIT 36.1 % (36-48); LYMPHOCYTES % (AUTO) 24.5 % (21.0-51.0); MEAN CORPUSCULAR HEMOGLOBIN 28.1 pg (27.0-33.0); MEAN CORPUSCULAR VOLUME 85.1 fL (79-99); NEUTROPHILS % (AUTO) 63.7 % (40.0-77.0); PLATELET COUNT (AUTO) 293 K/uL (130-400); RED BLOOD CELL COUNT(AUTO) 4.24 MIL/uL (4.00-5.50); RED CELL DISTRIBUTION WIDTH 14.2 % (11.0-15.5); WHITE BLOOD COUNT (AUTO) 7.1 K/uL (4.8-10.8)
[2021-09-03 13:24] LABS: ALBUMIN 3.6 g/dL (3.5-5.0); BILIRUBIN,TOTAL 0.7 mg/dL (0.2-1.0); MAGNESIUM 1.8 mg/dL (1.80-2.40); POTASSIUM 3.8 mmol/L (3.5-5.1)
[2021-09-03 13:25] LABS: APPEARANCE,URINE Clear (CLEAR); BILIRUBIN,URINE Negative (NEGATIVE); COLOR,URINE Yellow (YELLOW); GLUCOSE, URINE (UA) Negative (NEGATIVE); KETONES,URINE Negative (NEGATIVE); LEUKOCYTE ESTERASE ,URINE Moderate (NEGATIVE); NITRATE,URINE Negative (NEGATIVE); OCCULT BLOOD,URINE Negative (NEGATIVE); PH,URINE 7.5 (5.0-8.0); PROTEIN,URINE POS 1+ mg/dL (NEGATIVE); UROBILINOGEN,URINE 0.2 mg/dL (0.2-1.0)
[2021-09-03] MEDS ORDERED: 0.9%NACL 1000ML 1,000 ML IV SCH (13:30)
[2021-09-03 13:31] LABS: B-TYPE NATRIURETIC PEPTIDE 162 pg/mL (0-100)
[2021-09-03 13:54] LABS: BACTERIA,URINE Few /HPF (None Seen)
[2021-09-03 13:55] LABS: RBC,URINE 0-1 /HPF (0-1); SQUAMOUS EPITHELIAL CELL,UR 0-2 /HPF (0-2)
[2021-09-03] MEDS ORDERED: LACTATED RINGERS 1000ML 1,000 ML IV SCH (14:00)
[2021-09-03] MEDS ORDERED: CEFTRIAXONE 1G VIAL IVP SCH (14:00)
[2021-09-03] MEDS ORDERED: CEPH500B PO (16:01)
[2021-09-03 16:24] VITALS: BP 121/45
== END 2021-09-03 16:26 | disposition home or self-care (01) ==
LOC: EDH 12:42
DX: I95.1 Orthostatic hypotension (principal); N39.0 Urinary tract infection, site not specified; E86.0 Dehydration; E87.1 Hypo-osmolality and hyponatremia; I10 Essential (primary) hypertension; Z88.1 Allergy status to other antibiotic agents; Z88.6 Allergy status to analgesic agent; Z88.8 Allergy status to other drugs, medicaments and biological substances
CPT/HCPCS: 36415; 71045; 80053; 81001; 82550; 83735; 83880; 84484; 85025; 87088; 93005; 96361; 96374; 99285; J0696; J7120